=== PATIENT | female | born 1990 | race Caucasian/White ===

== ENCOUNTER 2016-12-18 21:15 | Observation (INO) ==
[2016-12-18] MEDS ORDERED: Naloxone 0.4 MG/ML INJ IVP PRN (23:36)
[2016-12-18] MEDS ORDERED: Acetaminophen 325 MG TABLET PO PRN (23:36)
--- NOTE | 2016-12-18 23:36 | Internal Med History&Physical ---
<Jean Baron - Last Filed: 12/19/16 00:55> Date of Encounter: 12/19/16 Time of Encounter: 23:15 Assessment and Plan (1) Suicide attempt by multiple drug overdose Current visit: No Status: Acute Patient reports suicide attempt this afternoon by multiple drug overdose. Patient reports taking unknown large quantity of patient's mental enlargement unknown quantity of her Celexa at 5 PM this afternoon. patient somnolent with injected sclera. Patient afebrile. Labs and vitals unremarkable except for positive UDS of opiates, cocaine, benzodiazepines, and THC. EKG does not show any concerning QT prolongation, though questionable partial right bundle block present. No ocular clonus or rigidity seen on exam. Due to concerns of development of serotonin syndrome, will have standing order to contact physician if extreme temperature or rigidity develops patient might require cyproheptadine if this develops will repeat EKG in AM Continue cardiac telemetry IV ativan prn for seizure activity 100 ml/hr NS tylenol prn for pain or fever Suicide precautions in place sitter consult to psychiatry Check electrolytes in the am Qualifiers: Encounter type: initial encounter Qualified Code(s): T50.902A - Poisoning by unspecified drugs, medicaments and biological substances, intentional self- harm, initial encounter (2) Substance abuse Current visit: No Status: Acute Patient has history of substance abuse and had been clean previously. SHe reports that she recently started using again. She reports heroin, cocaine, and marijuana usage. Will treat symptomatically for right now (3) Respiratory infection Current visit: Yes Status: Acute Patient reports having a cold for the last 2 weeks. Will provide breathing treatment as needed for difficulty breathing, also she does have some wheezing on exam. breathing treatment prn (4) DVT prophylaxis Current visit: Yes Status: Acute encourage ambulation Internal Medicine - H&P: HPI Chief complaint: Attemped suicide from OD Admitted From: Home Plans for Post Hospital Care: Home History of present illness: Ms. Lewis is a 26 year old female with prior medical history of depression was brought to [place] by EMS after intentional drug overdose this afternoon. Patient reports having argument with her mom at 5:00 this afternoon after which she felt she wanted to harm herself and proceeded to take a large unknown quantity of her 's Lamictal as well as a large unknown quantity of her own citalopram. She had recently begun abusing substances again, having been clean for some time she started using heroin, cocaine, and marijuana 1 week ago. She denies having prior attempts of suicide. Currently she reports she has no suicidal ideation. She does report that since her ingestion of Lamictal and Celexa she has felt some decreased appetite, headache, dizziness, diarrhea and dehydration. She states she has a headache due to grinding of her teeth which really bothers her she also reports having chills. She denies shortness of breath, chest pain, palpitations, abdominal pain, emesis. Past Med Surg Social Fam HX - Past Medical History Medical history: non-contributory Psychiatric history: anxiety, depression - Social History Smoking Status: Current every day smoker Smokeless Tobacco Status: No Alcohol use: none Drug use: opiates, IV Drug Use, prescription drug abuse Internal Medicine - H&P: Meds Citalopram Hydrobromide [Celexa] 20 mg PO 05/01/16 [History] Clindamycin HCl [Cleocin HCl] 300 mg PO TID #21 cap 05/01/16 [Rx] Ibuprofen [Motrin] 600 mg PO Q6HR PRN #10 tab 05/01/16 [Rx] Jaxson/Poly/HC *EAR* SOLN [Cortisporin *EAR* SOLN] 4 drop LEFT EAR QID #1 solution 05/01/16 [Rx] clonazePAM [Klonopin] 1 mg PO 05/01/16 [History] 3 Allergy/AdvReac Type Severity Reaction Status Date / Time Penicillins Allergy Rash Verified 05/01/16 18:14 Review of systems: Gen: Denies fever, reports chills, denies weakness, denies fatigue, reports tooth grinding CV: Denies chest pain, denies exertional chest pain or dyspnea, denies palpitations Resp: Denies shortness of breath, denies dyspnea, denies coughing, denies changes in phlegm production, reports wheeze, reports cold 2 weeks GI: Reports nausea, denies vomiting, denies abdominal pain, denies constipation , reports diarrhea, denies hematochezia, denies melena MSK: denies arthralgia, denies muscle weakness Neuro: Reports headache, denies confusion, denies focal weakness, denies numbness, denies tingling, denies vision changes Skin: Denies bruising, denies rash : Denies flank pain, denies dysuria, denies hematuria - Constitutional Vitals: Temp Pulse Resp BP Pulse Ox 98.2 F 88 15 132/99 97 12/18/16 23:06 12/18/16 23:06 12/18/16 23:06 12/18/16 23:06 12/18/16 23:06 Exam: General: Somnolent, but easily arousable, no acute distress, alert and oriented 3, answers questions appropriately, slightly diaphoretic HEENT: Normocephalic, atraumatic, neck supple, trachea midline, Conjunctiva pink , sclera injected, EOMI, PERRL, oral mucosa moist, no orophargeal erythema or exudates Respiratory: No accessory muscle usage, good air movement, diffuse wheeze on auscultation Cardiovascular: Regular rate and rhythm, S1 and S2 present, no murmurs/rubs/ gallops/clicks appreciated GI/abdominal: Nondistended, nontender, soft, normal bowel sounds, no peritoneal signs Extremities: No calf tenderness, noncyanotic, no pedal edema appreciated, warm, lower extremity pulses palpable and symmetrical, cranial nerves II through XII intact, sensation intact, no rigors observed, no tremulousness Neurological: Somnolent, but easily arousable, no facial droop, no focal deficits Skin: Dry, intact, normal color <Dustin Tay - Last Filed: 12/19/16 01:35> Date of Encounter: 12/19/16 Internal Medicine - H&P: HPI History of present illness: Ms. Lewis is a 26 year old female All Systems PM: A 10-system review of systems was performed and is negative for pertinent findings except as documented above in the HPI. - Constitutional Vitals: Temp Pulse Resp BP Pulse Ox 98.2 F 88 15 132/99 97 12/18/16 23:06 12/18/16 23:06 12/18/16 23:06 12/18/16 23:06 12/18/16 23:06 - Attending Attestation I have independently seen and examined this patient on 12/19/16 and reviewed plan of care with the [employer]ER/resident physician and the patient 26 YO F with known hx of polysusbstance abuse including heroin, cocaine, benzodiazepine, depression She intentionally took celexa, lamictal, cocaine, heroin, benzodiazepine. Reports chills and headaches. At time of review, she was sleeping soundly but rousable. Pupils were equal and reactive, unable to establish nystagmus, as patient is unco-operative. Chest is CTAB, HS S1, S2 only, no m/g/r, Abdomen is soft, no pedal edema Labs and Imaging reviewed: Unremarkable. Utox with BZP/THC/Cocaine/Opiates. EKG QTc 405, MS interval 175 Assessment/Plan: Intentional drug overdose with SSRI. Continue supportive care, daily EKGs, keep on tele, ensure electrolytes are normal, Psych eval, 1:1 observation with sitter, monitor for benzo withdrawal. Monitor for serotonin syndrome Rest of details as in resident physician's documentation
[2016-12-18] MEDS ORDERED: ALPRAZolam 0.25 MG TABLET PO PRN (23:45)
[2016-12-18] MEDS: *HR* Promethazine 25 MG/ML VIAL IVP PRN (23:49)
[2016-12-18] MEDS: 0.9 % Sodium Chloride 1,000 ML IVC SCH (23:49)
[2016-12-19] MEDS ORDERED: Ipratropium/Albuterol Neb 3 ML IH PRN (01:04)
[2016-12-19 06:44] LABS: Basophils # 0.1 K/mcL (0.0-0.2); Basophils % 1.1 %; Eosinophils # 0.6 K/mcL (0.0-0.6); Eosinophils % 8.5 %; Hematocrit 40.8 % (35.3-44.9); Hemoglobin 13.4 g/dL (11.5-15.4); Immature Granulocytes % 0.3 % (0-4); Lymphocytes # 1.6 K/mcL (0.6-4.6); Lymphocytes % 24.1 %; Mean Corpuscular HGB Conc 32.8 g/dL (31.6-35.5); Mean Corpuscular Hemoglobin 27.7 pg (28.0-33.3); Mean Corpuscular Volume 84.3 fL (83.0-100.0); Mean Platelet Volume 8.8 fL (9.4-12.4); Monocytes # 0.4 K/mcL (0.0-1.3); Monocytes % 5.7 %; Platelet Count 268 K/mcL (140-400); Red Blood Count 4.84 M/mcL (3.82-4.97); Red Cell Distribution Width 12.3 % (11.5-14.5); Segmented Neutrophils % 60.3 %
[2016-12-19 06:59] LABS: Alanine Aminotransferase 15 Units/L (0-55); Albumin 3.6 g/dL (3.5-5.0); Albumin/Globulin Ratio 0.8 (1.1-2.2); Alkaline Phosphatase 111 Units/L (38-126); Aspartate Amino Transferase 13 Units/L (5-34); BUN/Creatinine Ratio 13 (6-26); Bilirubin,Total 0.3 mg/dL (0.2-1.2); Blood Urea Nitrogen 10 mg/dL (7-20); Calcium 9.4 mg/dL (8.6-10.8); Carbon Dioxide 23 mEq/L (19-29); Chloride 106 mEq/L (98-109); Globulin 4.3 g/dL (2.4-3.5); Glucose 99 mg/dL (70-99); Magnesium 2.1 mg/dL (1.6-2.6); Osmolality,Calculated 287 (280-300); Phosphorous 2.9 mg/dL (2.3-4.7); Sodium 139 mEq/L (136-145); Total Protein 7.9 g/dL (6.0-8.3); eGFR For African Americans > 60 (> 60); eGFR For Non-African Americans > 60 (> 60)
[2016-12-19] MEDS: 0.9 % Sodium Chloride 1,000 ML IVC SCH (08:40)
[2016-12-19] MEDS: *HR* LORazepam 2 MG/ML VIAL IVP PRN ×2 (10:03→15:31)
--- NOTE | 2016-12-19 14:26 | Consult Note ---
Date of Encounter: 12/19/16 Time of Encounter: 13:50 Assessment & Recommendation (1) Depression Current visit: Yes Status: Acute Assessment & Recommendation: remains depressed , will continue celexa 40 mg suicide attempt , continue close observation Qualifiers: Depression Type: major depressive disorder Active/Remission status: currently active Major depression episode severity: moderate Qualified Code( s): F33.1 - Major depressive disorder, recurrent, moderate (2) Suicide attempt by multiple drug overdose Current visit: No Status: Acute Qualifiers: Encounter type: initial encounter Qualified Code(s): T50.902A - Poisoning by unspecified drugs, medicaments and biological substances, intentional self- harm, initial encounter (3) Substance abuse Current visit: No Status: Acute (4) Opiate addiction Current visit: Yes Status: Acute Assessment & Recommendation: withdrawing from i/v use daily for 7 days , need rehab upon discharge. Qualifiers: Substance use status: in withdrawal Qualified Code(s): F11.23 - Opioid dependence with withdrawal History of Present Illness Requesting Physician: Jacinda Liriano MD Reason for consult: suicide attemt by OD History of present illness: Ms. Lewis is a 26 year old female consulted today for suicide attempt by OD. Patient was seen today in her room . CC I feel sick. She attempted suicide yesterday after argument with her mother and took celexa and lamictal states took bunch of them , she relapsed a week ago on heroin , using 1 gram daily i/v and some cocain and marijuana. states she at present feeling very sick, feels like bugs crawling on her skin , stomach aches and sweating , she states i was upset and angry and also thinks drugs has to do something with it , got impulsive and took pills her was there and he tried to stop her but was late,he called the squad. 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 denies any previous si/attempts she was tearful during session , was anxious , denied suicidal ideas at present states was a mistake ,gives h/o anger, impulsive behaviours, mood swings, racing thoughts and insomnia . A/P h/o Depression on celexa Opiate dependence relapsed 1 week ago . At present going thru withdrawls and need to be stabilized. cocain and marijuana use disorder. R/O Bipolar unspecified REC. OPiate withdrawl stabilization adding depakote 250 mg bid for her moods and anger and impulsivity. patient not suicidal at present but very depressed and impulsive will continue 1:1 and once medically stable may need inpatient rehab. will follow. Thanks for consult. CC: Jacinda Liriano MD Past Med Surg Social Fam HX - Past Medical History Medical history: non-contributory - Past Psychiatric History Psychiatric history: Reports: anxiety, depression Family psychiatric history: Unknown Family History of Suicide: Unknown - Social History Smoking Status: Current every day smoker Smokeless Tobacco Status: No Alcohol use: none Drug use: opiates, IV Drug Use, prescription drug abuse Medications & Allergies Citalopram Hydrobromide [Celexa] 40 mg PO DAILY 05/01/16 [History] clonazePAM [Klonopin] 1 mg PO TID PRN 05/01/16 [History] 3 Allergy/AdvReac Type Severity Reaction Status Date / Time Penicillins Allergy Rash Verified 05/01/16 18:14 Review of Systems Psychiatric: Reports: depression, anxiety, abnormal sleep pattern, suicidal ideation, hopelessness, irritability Mental Status Exam Patient orientation: Yes Person, Yes Time, Yes Place Level of alertness: Alert Patient appearance: Appropriate Behavior: anxious, tearful, impulsive Psychomotor activity: Normal Eye contact: Minimal Contact Mood description: Depressed, Anxious Affect description: tearful, dysphoric Speech pattern: Coherent Speech volume: Normal Thought process: Racing Thought content: Yes Preoccupation, Yes Guilt Perceptual disturbances: Yes Tactile hallucinations Attention span: Unable to Sustain Attention Memory description: Grossly Intact Patient reliability: Questionable Historian Intelligence estimate: Average Judgment: Limited Insight: Partial Results - Vital Signs Vital signs: Temp Pulse Resp BP Pulse Ox 98.2 F 84 20 100/62 95 12/18/16 23:06 12/19/16 11:00 12/19/16 11:00 12/19/16 11:00 12/19/16 11:00 - Labs Labs: Laboratory Last Values WBC 6.6 K/mcL (4.3-11.1) 12/19/16 06:32 RBC 4.84 M/mcL (3.82-4.97) 12/19/16 06:32 Hgb 13.4 g/dL (11.5-15.4) 12/19/16 06:32 Hct 40.8 % (35.3-44.9) 12/19/16 06:32 MCV 84.3 fL (83.0-100.0) 12/19/16 06:32 MCH 27.7 pg (28.0-33.3) L 12/19/16 06:32 MCHC 32.8 g/dL (31.6-35.5) 12/19/16 06:32 RDW 12.3 % (11.5-14.5) 12/19/16 06:32 Plt Count 268 K/mcL (140-400) 12/19/16 06:32 MPV 8.8 fL (9.4-12.4) L 12/19/16 06:32 Immature Gran % 0.3 % (0-4) 12/19/16 06:32 Seg Neutrophils % 60.3 % 12/19/16 06:32 Lymphocytes % 24.1 % 12/19/16 06:32 Monocytes % 5.7 % 12/19/16 06:32 Eosinophils % 8.5 % 12/19/16 06:32 Basophils % 1.1 % 12/19/16 06:32 Neutrophils # 4.0 K/mcL (1.6-8.9) 12/19/16 06:32 Lymphocytes # 1.6 K/mcL (0.6-4.6) 12/19/16 06:32 Monocytes # 0.4 K/mcL (0.0-1.3) 12/19/16 06:32 Eosinophils # 0.6 K/mcL (0.0-0.6) 12/19/16 06:32 Basophils # 0.1 K/mcL (0.0-0.2) 12/19/16 06:32 Sodium 139 mEq/L (136-145) 12/19/16 06:32 Potassium 4.0 mEq/L (3.5-4.5) 12/19/16 06:32 Chloride 106 mEq/L (98-109) 12/19/16 06:32 Carbon Dioxide 23 mEq/L (19-29) 12/19/16 06:32 BUN 10 mg/dL (7-20) 12/19/16 06:32 Creatinine 0.77 mg/dL (0.57-1.11) 12/19/16 06:32 Est GFR ( Amer) > 60 (> 60) 12/19/16 06:32 Est GFR (Non-Af Amer) > 60 (> 60) 12/19/16 06:32 BUN/Creatinine Ratio 13 (6-26) 12/19/16 06:32 Glucose 99 mg/dL (70-99) 12/19/16 06:32 Calculated Osmolality 287 (280-300) 12/19/16 06:32 Calcium 9.4 mg/dL (8.6-10.8) 12/19/16 06:32 Phosphorus 2.9 mg/dL (2.3-4.7) 12/19/16 06:32 Magnesium 2.1 mg/dL (1.6-2.6) 12/19/16 06:32 Total Bilirubin 0.3 mg/dL (0.2-1.2) 12/19/16 06:32 AST 13 Units/L (5-34) 12/19/16 06:32 ALT 15 Units/L (0-55) 12/19/16 06:32 Alkaline Phosphatase 111 Units/L (38-126) 12/19/16 06:32 Serum Total Protein 7.9 g/dL (6.0-8.3) 12/19/16 06:32 Albumin 3.6 g/dL (3.5-5.0) 12/19/16 06:32 Globulin 4.3 g/dL (2.4-3.5) H 12/19/16 06:32 Albumin/Globulin Ratio 0.8 (1.1-2.2) L 12/19/16 06:32 Consult Discharge Plan - Plan Referrals: Artur Gagnon DO [Primary Care Provider] -
[2016-12-19] MEDS ORDERED: *HR* LORazepam 2 MG/ML VIAL IVP PRN (15:53)
[2016-12-19] MEDS ORDERED: Valproic Acid 250 MG CAPSULE PO SCH (17:00)
[2016-12-19] MEDS: *HR* Promethazine 25 MG/ML VIAL IVP PRN (17:10)
--- NOTE | 2016-12-19 17:57 | Internal Med Progress Note ---
Date of Encounter: 12/19/16 Time of Encounter: 10:00 - Assessment and plan (1) Suicide attempt by multiple drug overdose Current Visit: No Status: Acute Assessment and plan: Patient will continue cardiac monitoring. Closer monitor liver and renal function. Keep a one-to-one sitter and a suicidal precaution. Psychiatry consult appreciated. Recommendation has been followed. Qualifiers: Encounter type: initial encounter Qualified Code(s): T50.902A - Poisoning by unspecified drugs, medicaments and biological substances, intentional self- harm, initial encounter (2) Substance abuse Current Visit: No Status: Acute Assessment and plan: Social work consult for further placement. (3) DVT prophylaxis Current Visit: Yes Status: Acute Assessment and plan: Patient is young and ambulating well. Low risk. No anti-cannulation placed (4) Depression Current Visit: Yes Status: Acute Assessment and plan: Keep Depakote. Hold Celexa because patient has Celexa overdose. Qualifiers: Depression Type: major depressive disorder Active/Remission status: currently active Major depression episode severity: moderate Qualified Code( s): F33.1 - Major depressive disorder, recurrent, moderate - Time Spent With Patient 25 - 35 minutes - Subjective Interval history: Patient is a 26-year-old female admitted for intentional drug overdose and suicidal attempt. Past medical history is significant for substance abuse, anxiety, and depression Patient was seen and examined. Denies abdominal pain, nausea, vomiting. Patient said she feels she has some withdrawal symptoms. Vitals are stable. Psychiatry counselt appreciated. Add Depakote for mood stabilization. Poison control has been called by RN, no further recommendation. - Constitutional Vitals: Temp Pulse Resp BP Pulse Ox 97.8 F 100 20 108/68 97 12/19/16 15:29 12/19/16 15:29 12/19/16 15:29 12/19/16 15:29 12/19/16 15:29 General appearance: Present: A&O X 3, no acute distress, answers questions appropriately - Head Head exam: Present: atraumatic, normocephalic - Eye Eye exam: Present: PERRL, conjuntiva pink, sclera anicteric Pupils: Present: PERRL - Neck Neck exam general surgery: Present: supple, trachea midline. Absent: lymphadenopathy - Respiratory Respiratory exam: Present: CTAB. Absent: accessory muscle use, rales, rhonchi, wheezes - Cardiovascular Cardiovascular exam: Present: RRR, +S1, +S2. Absent: diastolic murmur, gallop, rubs, systolic murmur - GI/Abdominal GI/Abdominal exam: Present: normal bowel sounds, soft, no peritoneal signs. Absent: distended, tenderness - Extremities Exam Extremities exam: Present: warm, radial pulses palpable and symmetrical. Absent : calf tenderness, cyanotic, pedal edema - Neurological Exam Neurological exam: Present: CN II-XII intact, oriented X3, no focal deficits. Absent: pronater drift, facial droop, speech deficit - Skin Skin exam: Present: dry, intact Internal Medicine: Result - Labs CBC & Chem 7: 12/19/16 06:32 12/19/16 06:32 Labs: Short CBC 12/19/16 Range/Units 06:32 WBC 6.6 (4.3-11.1) K/mcL Hgb 13.4 (11.5-15.4) g/dL Hct 40.8 (35.3-44.9) % Plt Count 268 (140-400) K/mcL Neutrophils # 4.0 (1.6-8.9) K/mcL BMP 12/19/16 06:32 Sodium 139 Potassium 4.0 Chloride 106 Carbon Dioxide 23 BUN 10 Creatinine 0.77 Glucose 99 Calcium 9.4 Liver Function 12/19/16 Range/Units 06:32 Total Bilirubin 0.3 (0.2-1.2) mg/dL AST 13 (5-34) Units/L ALT 15 (0-55) Units/L Alkaline Phosphatase 111 (38-126) Units/L Albumin 3.6 (3.5-5.0) g/dL Consult Discharge Plan - Plan Referrals: Artur Gagnon DO [Primary Care Provider] -
[2016-12-19] MEDS: Gabapentin 300 MG CAPSULE PO SCH (18:00)
[2016-12-19] MEDS: clonazePAM 1 MG TABLET PO PRN (20:45)
[2016-12-19] MEDS: Divalproex (12 HR) 250 MG TABLET PO SCH (20:46)
[2016-12-20] MEDS: *HR* Promethazine 25 MG/ML VIAL IVP PRN ×2 (00:11→07:30)
[2016-12-20] MEDS: Gabapentin 300 MG CAPSULE PO SCH ×2 (00:11→08:36)
[2016-12-20 06:35] LABS: Basophils # 0.1 K/mcL (0.0-0.2); Basophils % 1.4 %; Eosinophils # 0.8 K/mcL (0.0-0.6); Eosinophils % 13.1 %; Hematocrit 40.2 % (35.3-44.9); Hemoglobin 13.3 g/dL (11.5-15.4); Immature Granulocytes % 0.2 % (0-4); Lymphocytes # 2.4 K/mcL (0.6-4.6); Lymphocytes % 40.6 %; Mean Corpuscular HGB Conc 33.1 g/dL (31.6-35.5); Mean Corpuscular Hemoglobin 28.1 pg (28.0-33.3); Mean Corpuscular Volume 84.8 fL (83.0-100.0); Mean Platelet Volume 8.6 fL (9.4-12.4); Monocytes # 0.3 K/mcL (0.0-1.3); Monocytes % 5.7 %; Neutrophils # 2.3 K/mcL (1.6-8.9); Nucleated Red Blood Cells 0.3 /100 WBC (0); Platelet Count 282 K/mcL (140-400); Red Blood Count 4.74 M/mcL (3.82-4.97); Red Cell Distribution Width 12.5 % (11.5-14.5)
[2016-12-20 06:48] LABS: Alanine Aminotransferase 11 Units/L (0-55); Albumin 3.4 g/dL (3.5-5.0); Albumin/Globulin Ratio 0.8 (1.1-2.2); Alkaline Phosphatase 98 Units/L (38-126); Aspartate Amino Transferase 11 Units/L (5-34); BUN/Creatinine Ratio 14 (6-26); Bilirubin,Total 0.2 mg/dL (0.2-1.2); Blood Urea Nitrogen 11 mg/dL (7-20); Calcium 9.2 mg/dL (8.6-10.8); Carbon Dioxide 22 mEq/L (19-29); Chloride 110 mEq/L (98-109); Globulin 4.4 g/dL (2.4-3.5); Glucose 88 mg/dL (70-99); Osmolality,Calculated 295 (280-300); Potassium 3.7 mEq/L (3.5-4.5); Sodium 143 mEq/L (136-145); Total Protein 7.8 g/dL (6.0-8.3); eGFR For African Americans > 60 (> 60); eGFR For Non-African Americans > 60 (> 60)
[2016-12-20] MEDS: clonazePAM 1 MG TABLET PO PRN (07:30)
[2016-12-20] MEDS: Divalproex (12 HR) 250 MG TABLET PO SCH (08:36)
[2016-12-20 11:36] VITALS: BP 112/66
--- NOTE | 2016-12-20 14:26 | Consult Note ---
Date of Encounter: 12/20/16 Time of Encounter: 12:00 Assessment & Recommendation (1) Depression Current visit: Yes Status: Acute Qualifiers: Depression Type: major depressive disorder Active/Remission status: currently active Major depression episode severity: moderate Qualified Code( s): F33.1 - Major depressive disorder, recurrent, moderate (2) Suicide attempt by multiple drug overdose Current visit: No Status: Resolved Qualifiers: Encounter type: initial encounter Qualified Code(s): T50.902A - Poisoning by unspecified drugs, medicaments and biological substances, intentional self- harm, initial encounter (3) Substance abuse Current visit: No Status: Acute (4) Opiate addiction Current visit: Yes Status: Acute Qualifiers: Substance use status: in withdrawal Qualified Code(s): F11.23 - Opioid dependence with withdrawal History of Present Illness Requesting Physician: Jacinda Liriano MD Reason for consult: suicide attempt. History of present illness: Ms. Lewis is a 26 year old female was seen today for follow up , she was seen along with her with her consent. also d/w Dr Liriano her case and medications and plan related to her psychiatric illness. She denies any suicidal ideation at present feels she was impulsive after argument with her mother and angry and does not feel suicidal now and denies any cravings , states will follow up with her meetings , psychiatrist and has counselling appointment on 12/31/16. she has good support , is going to accompany her to her appointment. A/P bipolar nos/opiate dependence will change celexa to Lexapro 10 mg continue depakote 250 mg bid. patient was given education about her meds , side effects and also d/w her to talk to her outpatient psychiatrist regarding Naltrexone. pt and family agreed. patient at present not in imenent danger to self/others , will discharge from psych. patient and family doesnot feel needs inpatient rehab, she states will go out patient . Thank for consult. CC: Jacinda Liriano MD Past Med Surg Social Fam HX - Past Medical History Medical history: non-contributory - Social History Smoking Status: Current every day smoker Smokeless Tobacco Status: No Alcohol use: none Drug use: opiates, IV Drug Use, prescription drug abuse Medications & Allergies Citalopram Hydrobromide [Celexa] 40 mg PO DAILY 05/01/16 [History] clonazePAM [Klonopin] 1 mg PO TID PRN 05/01/16 [History] 3 Allergy/AdvReac Type Severity Reaction Status Date / Time Penicillins Allergy Rash Verified 05/01/16 18:14 Review of Systems Psychiatric: Reports: depression, anxiety, abnormal sleep pattern, suicidal ideation, hopelessness, irritability Mental Status Exam Patient orientation: Yes Person, Yes Time, Yes Place Level of alertness: Alert Patient appearance: Appropriate Behavior: calm, cooperative Psychomotor activity: Normal Eye contact: Maintains Eye Contact Mood description: Anxious Affect description: congruent with mood Speech pattern: Coherent Speech volume: Normal Thought process: Intact Thought content: Yes Intact Attention span: Capable of Focused Attention Patient reliability: Reliable Historian Intelligence estimate: Average Judgment: Good Insight: Full Results - Vital Signs Vital signs: Temp Pulse Resp BP Pulse Ox 98.2 F 95 18 112/66 97 12/20/16 11:33 12/20/16 11:33 12/20/16 11:33 12/20/16 11:33 12/20/16 11:33 - Labs Labs: Laboratory Last Values WBC 5.8 K/mcL (4.3-11.1) 12/20/16 06:20 RBC 4.74 M/mcL (3.82-4.97) 12/20/16 06:20 Hgb 13.3 g/dL (11.5-15.4) 12/20/16 06:20 Hct 40.2 % (35.3-44.9) 12/20/16 06:20 MCV 84.8 fL (83.0-100.0) 12/20/16 06:20 MCH 28.1 pg (28.0-33.3) 12/20/16 06:20 MCHC 33.1 g/dL (31.6-35.5) 12/20/16 06:20 RDW 12.5 % (11.5-14.5) 12/20/16 06:20 Plt Count 282 K/mcL (140-400) 12/20/16 06:20 MPV 8.6 fL (9.4-12.4) L 12/20/16 06:20 Immature Gran % 0.2 % (0-4) 12/20/16 06:20 Seg Neutrophils % 39.0 % 12/20/16 06:20 Lymphocytes % 40.6 % 12/20/16 06:20 Monocytes % 5.7 % 12/20/16 06:20 Eosinophils % 13.1 % 12/20/16 06:20 Basophils % 1.4 % 12/20/16 06:20 Neutrophils # 2.3 K/mcL (1.6-8.9) 12/20/16 06:20 Lymphocytes # 2.4 K/mcL (0.6-4.6) 12/20/16 06:20 Monocytes # 0.3 K/mcL (0.0-1.3) 12/20/16 06:20 Eosinophils # 0.8 K/mcL (0.0-0.6) H 12/20/16 06:20 Basophils # 0.1 K/mcL (0.0-0.2) 12/20/16 06:20 Nucleated RBCs/100 WBC 0.3 /100 WBC (0) H 12/20/16 06:20 Sodium 143 mEq/L (136-145) 12/20/16 06:20 Potassium 3.7 mEq/L (3.5-4.5) 12/20/16 06:20 Chloride 110 mEq/L (98-109) H 12/20/16 06:20 Carbon Dioxide 22 mEq/L (19-29) 12/20/16 06:20 BUN 11 mg/dL (7-20) 12/20/16 06:20 Creatinine 0.80 mg/dL (0.57-1.11) 12/20/16 06:20 Est GFR ( Amer) > 60 (> 60) 12/20/16 06:20 Est GFR (Non-Af Amer) > 60 (> 60) 12/20/16 06:20 BUN/Creatinine Ratio 14 (6-26) 12/20/16 06:20 Glucose 88 mg/dL (70-99) 12/20/16 06:20 Calculated Osmolality 295 (280-300) 12/20/16 06:20 Calcium 9.2 mg/dL (8.6-10.8) 12/20/16 06:20 Phosphorus 2.9 mg/dL (2.3-4.7) 12/19/16 06:32 Magnesium 2.1 mg/dL (1.6-2.6) 12/19/16 06:32 Total Bilirubin 0.2 mg/dL (0.2-1.2) 12/20/16 06:20 AST 11 Units/L (5-34) 12/20/16 06:20 ALT 11 Units/L (0-55) 12/20/16 06:20 Alkaline Phosphatase 98 Units/L (38-126) 12/20/16 06:20 Serum Total Protein 7.8 g/dL (6.0-8.3) 12/20/16 06:20 Albumin 3.4 g/dL (3.5-5.0) L 12/20/16 06:20 Globulin 4.4 g/dL (2.4-3.5) H 12/20/16 06:20 Albumin/Globulin Ratio 0.8 (1.1-2.2) L 12/20/16 06:20 Consult Discharge Plan - Plan Referrals: Artur Gagnon DO [Primary Care Provider] -
--- NOTE | 2016-12-20 14:33 | Discharge Summary ---
Date of Encounter: 12/20/16 Time of Encounter: 13:00 - Discharge Diagnosis (1) Suicide attempt by multiple drug overdose Priority: Primary Status: Resolved Qualifiers: Encounter type: initial encounter Qualified Code(s): T50.902A - Poisoning by unspecified drugs, medicaments and biological substances, intentional self- harm, initial encounter (2) Substance abuse Priority: Primary Status: Acute (3) DVT prophylaxis Priority: Secondary Status: Acute (4) Depression Priority: Secondary Status: Acute Qualifiers: Depression Type: major depressive disorder Active/Remission status: currently active Major depression episode severity: moderate Qualified Code( s): F33.1 - Major depressive disorder, recurrent, moderate - Discharge Medications Prescriptions: Divalproex (12 HR) [Depakote (12 HR)] 250 mg PO BID #28 tablet.dr Sherwood Medications: clonazePAM [Klonopin] 1 mg PO TID PRN 05/01/16 [History] Divalproex (12 HR) [Depakote (12 HR)] 250 mg PO BID #28 tablet. 12/20/16 [Rx] Escitalopram [Lexapro] 10 mg PO DAILY #14 tablet 12/20/16 [Rx] Allergies/Adverse Reactions: 3 Allergy/AdvReac Type Severity Reaction Status Date / Time Penicillins Allergy Rash Verified 05/01/16 18:14 Procedures/tests Complete & Pending: Procedures Performed prior 72 hours Category Date Time Status ECG 12 lead ECG [ECG] AM 0600 Y 12/19/16 06:00 Completed - Notes to Outpatient Provider 1. Per psychiatry: Hold the Celexa, start escitalopram 10mg po daily and Depakote 250 mg by mouth twice a day. Date of admission: 12/18/16 22:30 Primary care physician: Artur Gagnon DO Consults: 12/18/16 23:46 Consult to Psychiatry [CONS] Routine Consulting Provider: Psychiatry Jackie Reason for Consult: Suicide attempt by OD Call Completed: No 12/19/16 02:40 Consult to [employer] [CONS] Routine Reason for SW Consult: Resources for substance cessation Discharging clinician: Jacinda Liriano Anticipated date of discharge: 12/20/16 - Patient Status Disposition: Home, Self-Care Condition: Good Functional capacity at discharge: independent ambulation Overall status at discharge: patient is back to baseline - Discharge Instructions Follow Up With: Artur Gagnon DO [Primary Care Provider] - - Diet and Activity Activity: increase activity as tolerated Diet: regular diet Interval History: HPI: Ms. Lewis is a 26 year old female with prior medical history of depression was brought to [facility] by EMS after intentional drug overdose this afternoon. Patient reports having argument with her mom at 5:00 this afternoon after which she felt she wanted to harm herself and proceeded to take a large unknown quantity of her 's Lamictal as well as a large unknown quantity of her own citalopram. She had recently begun abusing substances again, having been clean for some time she started using heroin, cocaine, and marijuana 1 week ago. She denies having prior attempts of suicide. Currently she reports she has no suicidal ideation. She does report that since her ingestion of Lamictal and Celexa she has felt some decreased appetite, headache, dizziness, diarrhea and dehydration. She states she has a headache due to grinding of her teeth which really bothers her she also reports having chills. She denies shortness of breath, chest pain, palpitations, abdominal pain, emesis. Hospital course: Ms. Lewis is a 26 year old female admitted for drug overdose and suicidal attempt. Patient was placed on continuous cardiac monitoring, suicidal precaution, one-to-one sitter, monitor vitals. Patient was monitored more than 24 hours, no arrhythmia, no renal or liver dysfunction. Vitals are stable. Psychiatric consult saw pt, recommend rehabilitation but patient refused to go to rehabilitation. Personally discussed with psychiatrist Dr. Javed, Will switch Celexa to escitalopram 10mg po daily, add Depakote 250 twice a day, patient can be discharged home and follow-up with psychiatry as outpatient. I saw and examined patient today. She is awake, alert, oriented 3. No complaint. Vitals stable. We will discharge patient home and did prescribe medication per psych recommendation. Patient will follow-up with PCP and outpatient psychiatry. - Time Spent with Patient Total time spent providing and/or coordinating discharge services: 25 minute Less than 30 minutes - Constitutional Vitals: Temp Pulse Resp BP Pulse Ox 98.2 F 95 18 112/66 97 12/20/16 11:33 12/20/16 11:33 12/20/16 11:33 12/20/16 11:33 12/20/16 11:33 General appearance: Present: A&O X 3, no acute distress, answers questions appropriately - Head Head exam: Present: atraumatic, normocephalic - Eye Eye exam: Present: PERRL, conjuntiva pink, sclera anicteric Pupils: Present: PERRL - Neck Neck exam general surgery: Present: supple, trachea midline. Absent: lymphadenopathy - Respiratory Respiratory exam: Present: CTAB. Absent: accessory muscle use, rales, rhonchi, wheezes - Cardiovascular Cardiovascular exam: Present: RRR, +S1, +S2. Absent: diastolic murmur, gallop, rubs, systolic murmur - GI/Abdominal GI/Abdominal exam: Present: normal bowel sounds, soft, no peritoneal signs. Absent: distended, tenderness - Extremities Exam Extremities exam: Present: warm, radial pulses palpable and symmetrical. Absent : calf tenderness, cyanotic, pedal edema - Neurological Exam Neurological exam: Present: CN II-XII intact, oriented X3, no focal deficits. Absent: pronater drift, facial droop, speech deficit - Skin Skin exam: Present: dry, intact
== END 2016-12-20 14:55 | disposition home or self-care (01) ==
LOC: 2NENU
PROVIDERS: ADMIT Internal Medicine; ATTEND Internal Medicine